=== PATIENT | female | born 1980 | race African-American/Black ===

== ENCOUNTER 2017-03-07 13:28 | Emergency (ER) | payer MEDICAID ==
[~2017-03-07] VITALS: Ht 162.6 cm; Wt 60.0 kg
[2017-03-07 13:35] VITALS: BP 126/82
== END 2017-03-07 14:50 | disposition left against medical advice (07) ==
LOC: ER 13:30
DX: R51 Headache (principal); Z53.21 Procedure and treatment not carried out due to patient leaving prior to being seen by health care provider